=== PATIENT | female | born 1990 | race Caucasian/White ===

== ENCOUNTER 2016-09-25 16:57 | Inpatient (IN) | payer OTHER ==
[2016-09-25 17:24] LABS: BILIRUBIN NEGATIVE (NEGATIVE); BLOOD TRACE-INTACT Ery/uL (NEGATIVE); CLARITY CLEAR (CLEAR); COLOR STRAW (YELLOW); GLUCOSE (U) 2+ mg/dL (NORMAL); KETONE (U) 3+ (LARGE) mg/dL (NEGATIVE); LEUKOCYTES NEGATIVE Leu/uL (NEGATIVE); NITRITE NEGATIVE (NEGATIVE); PROTEIN 1+ mg/dL (NEGATIVE); UROBILINOGEN 0.2 mg/dL (0.2-1.0)
[2016-09-25 17:29] LABS: URINARY RBC RARE
[2016-09-25 17:35] LABS: AMPHETAMINES NEGATIVE (NEGATIVE); BARBITURATES NEGATIVE (NEGATIVE); BENZODIAZEPINES NEGATIVE (NEGATIVE); COCAINE NEGATIVE (NEGATIVE); MARIJUANA (THC) NEGATIVE (NEGATIVE); METHADONE NEGATIVE (NEGATIVE); TRICYCLIC ANTIDEPRESSANT NEGATIVE (NEGATIVE)
[2016-09-25 17:59] LABS: BASOPHIL 0.4 % (0-2); EOSINOPHIL 1.2 % (0-5); HCT 28.1 % (37.0-47.0); LYMPHOCYTE 16.1 % (15-48); MCH 18.6 pg (25.0-31.0); MCHC 27.4 g/dL (32.0-36.0); MCV 67.7 fL (78.0-100.0); MONOCYTE 7.2 % (0-12); NEUTROPHIL 75.1 % (41-80); PLT 537 K/uL (150-400); RBC 4.15 M/uL (4.20-5.40); RDW 19.9 % (11.5-14.0); WBC 13.4 K/uL (4.0-10.5)
[2016-09-25 18:10] LABS: INR 1.19 (0.9-1.2); PROTHROMBIN TIME 14.7 SECONDS (11.7-14.0); PTT 23.5 SECONDS (23.2-31.4)
[2016-09-25 18:12] LABS: HGB 7.7 g/dl (12.5-16.0)
[2016-09-25 18:21] LABS: ALBUMIN 3.1 g/dL (3.5-5.0); BILIRUBIN - TOTAL 0.2 mg/dL (0.1-1.0); CREATININE 0.4 mg/dL (0.5-1.0); GLOBULIN (CALCULATION) 4.3 g/dL (2.2-4.2); POTASSIUM 4.4 mmol/L (3.5-5.1); TOTAL PROTEIN 7.4 g/dL (6.4-8.3)
[2016-09-25 19:17] LABS: CREATININE 0.4 mg/dL (0.5-1.0); POTASSIUM 5.1 mmol/L (3.5-5.1)
[2016-09-25 20:52] LABS: CREATININE 0.4 mg/dL (0.5-1.0); POTASSIUM 4.4 mmol/L (3.5-5.1)
[2016-09-26 02:13] LABS: CREATININE 0.4 mg/dL (0.5-1.0); MAGNESIUM 1.6 mg/dL (1.40-2.10); PHOSPHORUS 1.6 mg/dL (2.7-4.5); POTASSIUM 3.7 mmol/L (3.5-5.1)
[2016-09-26 05:45] LABS: BASOPHIL 0.2 % (0-2); HCT 23.5 % (37.0-47.0); LYMPHOCYTE 16.5 % (15-48); MCH 18.3 pg (25.0-31.0); MCHC 27.2 g/dL (32.0-36.0); MCV 67.3 fL (78.0-100.0); MONOCYTE 12.2 % (0-12); MPV 8.5 fL (6.0-9.5); NEUTROPHIL 69.1 % (41-80); PLT 414 K/uL (150-400); RBC 3.49 M/uL (4.20-5.40); RDW 19.3 % (11.5-14.0); RETICULOCYTE COUNT 2.1 % (1.0-2.0)
[2016-09-26 06:07] LABS: HGB 6.4 g/dl (12.5-16.0)
[2016-09-26 06:14] LABS: CREATININE 0.3 mg/dL (0.5-1.0)
[2016-09-26 06:34] LABS: FOLIC ACID (SERUM) 19.1 ng/mL (4.4-31.0)
[2016-09-26 16:43] LABS: BASOPHIL NO PRINT 0.3 % (0-2); EOSINOPHIL NO PRINT 3.3 % (0-5); HGB 7.6 g/dL (12.5-16.0); LYMPHOCYTE NO PRINT 20.5 % (15-48); MCH NO PRINT 19.4 pg (25.0-31.0); MCHC NO PRINT 28.1 g/dL (32.0-36.0); MCV NO PRINT 69.1 fL (78.0-100.0); MONOCYTE NO PRINT 9.7 % (0-12); MPV NO PRINT 8.5 fL (6.0-9.5); NEUTROPHIL NO PRINT 66.2 % (41-80); PLT NO PRINT 379 K/uL (150-400); RBC NO PRINT 3.91 M/uL (4.20-5.40); RDW NO PRINT 20.3 % (11.5-14.0); WBC NO PRINT 7.8 K/uL (4.0-10.5)
[2016-09-26 17:02] LABS: CREATININE 0.3 mg/dL (0.5-1.0); POTASSIUM 4.1 mmol/L (3.5-5.1)
[2016-09-27 04:01] LABS: HCT 26.9 % (37.0-47.0); MCH 19.3 pg (25.0-31.0); MCHC 28.6 g/dL (32.0-36.0); MCV 67.6 fL (78.0-100.0); MPV 8.8 fL (6.0-9.5); RBC 3.98 M/uL (4.20-5.40); RDW 20.2 % (11.5-14.0); WBC 6.9 K/uL (4.0-10.5)
[2016-09-27 04:06] LABS: HGB 7.7 g/dl (12.5-16.0)
[2016-09-27 04:19] LABS: ALBUMIN 2.8 g/dL (3.5-5.0); ALKALINE PHOSHATASE 201 U/L (42-98); ALT 5 U/L (2-31); AST 9 U/L (0-31); BILIRUBIN - TOTAL 0.2 mg/dL (0.1-1.0); BUN <3.0 mg/dL (6-25); CHLORIDE 99 mmol/L (98-107); CREATININE 0.3 mg/dL (0.5-1.0); GLOBULIN (CALCULATION) 3.1 g/dL (2.2-4.2); GLUCOSE 112 mg/dL (70-105); PHOSPHORUS 1.9 mg/dL (2.7-4.5); TOTAL PROTEIN 5.9 g/dL (6.4-8.3)
== END 2016-09-27 10:01 | disposition home or self-care (01) | DRG 639 ==
LOC: FER 16:57 → FICU 09-26 00:19
PROVIDERS: Emergency Medicine; Internal Medicine Nephrology; ADMIT Internal Medicine
PROC: 30233N1 Transfusion of Nonautologous Red Blood Cells into Peripheral Vein, Percutaneous Approach (ICD-10-PCS; principal; 2016-09-26)
DX: E10.10 Type 1 diabetes mellitus with ketoacidosis without coma (principal); E83.39 Other disorders of phosphorus metabolism; J45.909 Unspecified asthma, uncomplicated; D50.9 Iron deficiency anemia, unspecified; F17.210 Nicotine dependence, cigarettes, uncomplicated; E86.0 Dehydration; Z79.4 Long term (current) use of insulin
CPT/HCPCS: 36415; 36430; 36600; 71010; 80048; 80053; 80305; 81001; 82009; 82607; 82728; 82746; 82803; 82962; 83036; 83540; 83605; 83735; 84100; 84443; 85014; 85018; 85025; 85044; 85610; 85730; 86850; 86900; 86901; 86922; 87040; 87088; 87804; 87899; 93005; J1815; J3475; P9016